=== PATIENT | female | born 1935 ===

== ENCOUNTER 2017-06-08 04:30 | Emergency (ER) | payer MEDICARE, MEDICAID ==
[2017-06-08] MEDS ORDERED: Morphine INJ* 2 MG/ML 1 ML CARPUJECT IV ONE ×2 (04:57→05:45)
[2017-06-08] MEDS ORDERED: LORazepam INJ* 2 MG/ML 1 ML VIAL IV PUSH ONE (04:57)
[2017-06-08] MEDS ORDERED: Ondansetron INJ* 2 MG/ML VIAL IV ONE (04:58)
[2017-06-08 05:23] LABS: ABS Basophils 0.1 10^3/ul (0-0.2); ABS Eosinophils 0 10^3/ul (0-0.6); ABS Lymphocytes 1.7 10^3/ul (1.0-4.8); ABS Monocytes 0.9 10^3/ul (0-0.8); ABS Neutrophils 10.2 10^3/ul (1.5-7.7); ABS Nucleated RBC 0 10^3/ul; Eosinophil % 0.4 % (0-6); Hematocrit 44 % (35-47); Hemoglobin 14.5 g/dl (12.0-16.0); Mean Corpuscular HGB Conc 33 g/dl (31-36); Mean Corpuscular Hemoglobin 30 pg (27-31); Mean Corpuscular Volume 91 fL (80-97); Mean Platelet Volume 9 um3 (7.4-10.4); Nucleated Red Blood Cells % 0; Platelet Count 222 10^3/ul (150-450); Red Blood Count 4.84 10^6/ul (4.0-5.4); Red Cell Distribution Width 14 % (10.5-15); White Blood Count 12.9 10^3/ul (3.5-10.8)
[2017-06-08 05:39] LABS: INR 1.89 (0.77-1.02)
[2017-06-08 05:45] LABS: EGFR Non-African American 84.9 (>60)
--- NOTE | 2017-06-08 06:25 | ED ---
Annamarie Agustin Julia, scribed for Sana Marc MD on 06/08/17 at 0603 . 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 The patient rates the pain 10/10 in severity. Patient denies vomiting, and numbness and tingling in extremities. Daughter reports blood pressure of 179/76. Daughter reports no chronic neck problems. Patient took Tylenol without relief. 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 Onset/Duration: Started hours ago Currently Pain Is: Current Pain Scale(0-10)= - 10 Timing: Constant Location of Headache: Occipital Radiates to: neck Associated Signs And Symptoms: Neck Pain - Allergies/Home Medications Allergies/Adverse Reactions: Allergies Allergy/AdvReac Type Severity Reaction Status Date / Time No Known Allergies Allergy Verified 01/08/14 17:09 PMH/Surg Hx/FS Hx/Imm Hx Endocrine/Hematology History: Reports: Hx Anticoagulant Therapy - heparion gtt, Hx Thyroid Disease Denies: Hx Diabetes Cardiovascular History: Reports: Hx Deep Vein Thrombosis, Hx Hypercholesterolemia, Hx Hypertension Denies: Hx Congestive Heart Failure Respiratory History: Reports: Hx Pulmonary Embolism - current History: Denies: Hx Renal Disease Musculoskeletal History: Reports: Hx Arthritis Psychiatric History: Reports: Hx Depression Infectious Disease History: No Infectious Disease History: Denies: Traveled Outside the [place] in Last 30 Days - Family History Known Family History: Negative: Cardiac Disease - Social History Alcohol Use: None Substance Use Type: Reports: None Hx Tobacco Use: Yes Smoking Status (MU): Former Smoker Length of Time of Smoking/Using Tobacco: 10 years Review of Systems Negative: Vomiting Positive: Myalgia - neck pain Positive: Headache. Negative: Numbness All Other Systems Reviewed And Are Negative: Yes Physical Exam - Summary Physical Exam Summary: VITAL SIGNS: Reviewed. GENERAL: Patient is a well-developed and nourished female who is lying comfortable in the stretcher. Patient is not in any acute respiratory distress. HEAD AND FACE: No signs of trauma. No ecchymosis, hematomas or skull depressions. No sinus tenderness. EYES: PERRLA, EOMI x 2, No injected conjunctiva, no nystagmus. EARS: Hearing grossly intact. Ear canals and tympanic membranes are within normal limits. MOUTH: Oropharynx within normal limits. NECK: Supple, trachea is midline, no adenopathy, no JVD, no carotid bruit, c- spine tenderness, pain with flexion and extension of neck, kyphosis scoliosis CHEST: Symmetric, no tenderness at palpation LUNGS: Clear to auscultation bilaterally. No wheezing or crackles. CVS: Regular rate and rhythm, S1 and S2 present, no murmurs or gallops appreciated. ABDOMEN: Soft, non-tender. No signs of distention. No rebound no guarding, and no masses palpated. Bowel sounds are normal. EXTREMITIES: FROM in all major joints, no edema, no cyanosis or clubbing. NEURO: Alert and oriented x 3. No acute neurological deficits. Speech is normal and follows commands. SKIN: Dry and warm Triage Information Reviewed: Yes Vital Signs On Initial Exam: Initial Vitals Temp Pulse Resp BP Pulse Ox 99.2 F 99 24 160/75 94 06/08/17 04:35 06/08/17 04:35 06/08/17 04:35 06/08/17 04:35 06/08/17 04:35 Vital Signs Reviewed: Yes Diagnostics - Vital Signs Vital Signs Temp Pulse Resp BP Pulse Ox 06/08/17 04:35 99.2 F 99 24 160/75 94 - Laboratory Lab Results: Lab Results 06/08/17 06/08/17 06/08/17 Range/Units 05:01 05:01 05:01 WBC 12.9 H (3.5-10.8) 10^3/ul RBC 4.84 (4.0-5.4) 10^6/ul Hgb 14.5 (12.0-16.0) g/dl Hct 44 (35-47) % MCV 91 (80-97) fL MCH 30 (27-31) pg MCHC 33 (31-36) g/dl RDW 14 (10.5-15) % Plt Count 222 (150-450) 10^3/ul MPV 9 (7.4-10.4) um3 Neut % (Auto) 79.2 (38-83) % Lymph % (Auto) 13.0 L (25-47) % [place] % (Auto) 7.0 (0-7) % Eos % (Auto) 0.4 (0-6) % Baso % (Auto) 0.4 (0-2) % Absolute Neuts (auto) 10.2 H (1.5-7.7) 10^3/ul Absolute Lymphs (auto) 1.7 (1.0-4.8) 10^3/ul Absolute Monos (auto) 0.9 H (0-0.8) 10^3/ul Absolute Eos (auto) 0 (0-0.6) 10^3/ul Absolute Basos (auto) 0.1 (0-0.2) 10^3/ul Absolute Nucleated RBC 0 10^3/ul Nucleated RBC % 0 INR (Anticoag Therapy) 1.89 H (0.77-1.02) APTT 41.1 H (26.0-36.3) seconds Sodium 133 (133-145) mmol/L Potassium 3.8 (3.5-5.0) mmol/L Chloride 101 (101-111) mmol/L Carbon Dioxide 23 (22-32) mmol/L Anion Gap 9 (2-11) mmol/L BUN 15 (6-24) mg/dL Creatinine 0.67 (0.51-0.95) mg/dL Est GFR ( Amer) 109.2 (>60) Est GFR (Non-Af Amer) 84.9 (>60) BUN/Creatinine Ratio 22.4 H (8-20) Glucose 179 H (70-100) mg/dL Calcium 9.9 (8.6-10.3) mg/dL Magnesium 2.1 (1.9-2.7) mg/dL Total Bilirubin 0.70 (0.2-1.0) mg/dL AST 18 (13-39) U/L ALT 19 (7-52) U/L Alkaline Phosphatase 99 (34-104) U/L C-Reactive Protein 6.40 H (< 5.00) mg/L Total Protein 7.9 (6.4-8.9) g/dL Albumin 4.4 (3.2-5.2) g/dL Globulin 3.5 (2-4) g/dL Albumin/Globulin Ratio 1.3 (1-3) Result Diagrams: 06/08/17 05:01 06/08/17 05:01 Lab Statement: Any lab studies that have been ordered have been reviewed, and results considered in the medical decision making process. - CT C-Spine CT Interpretation Completed By: Radiologist - Degenerative changes without fracture. ED Physician has reviewed this report. Head CT CT Interpretation Completed By: Radiologist - No evidence of acute pathology. ED Physician has reviewed this report. Headache Course/Dx - Course Course Of Treatment: Patient presents with neck pain that radiates into the occipital since last night. A C-Spine CT reveals degenerative changes of the neck. A Head CT reveals no acute pathology. Patient is given Ativan, Morphine, and Zofran. Lab results are unremarkable. - Diagnoses Provider Diagnoses: Cervical spine arthritis Discharge - Discharge Plan Condition: Stable Disposition: HOME Prescriptions: Cyclobenzaprine (NF) [Cyclobenzaprine 5 MG (NF)] 5 mg PO TID PRN #20 tab PRN Reason: Pain oxyCODONE/Acetamin 5/325 MG* [Percocet 5/325 TAB*] 1 tab PO Q6H PRN #14 tab MDD 4 PRN Reason: Pain Patient Education Materials: Arthritis (ED) Referrals: Noel Smith MD [Primary Care Provider] - If Needed Additional Instructions: RETURN TO THE EMERGENCY DEPARTMENT FOR CHANGING OR WORSENING SYMPTOMS. The documentation as recorded by the Annamarie borrego Julia accurately reflects the service I personally performed and the decisions made by Tari longo Abdul, MD.
[2017-06-08 06:40] VITALS: BP 153/79
--- NOTE | 2017-06-08 08:07 | RAD ---
HISTORY: Head pain COMPARISONS: June 14, 2013 TECHNIQUE: Multiple contiguous axial CT scans were obtained of the head without intravenous contrast. FINDINGS: HEMORRHAGE/INFARCT: There is no hemorrhage or acute infarct. MASSES/SHIFT: There is no mass or shift. EXTRA-AXIAL SPACES: There are no extra-axial fluid collections. SULCI AND VENTRICLES: The sulci and ventricles are normal in size and position for the patient's stated age. CEREBRUM: There are no focal parenchymal abnormalities. BRAINSTEM: There are no focal parenchymal abnormalities. CEREBELLUM: There are no focal parenchymal abnormalities. VESSELS: The vessels are grossly normal. PARANASAL SINUSES: The paranasal sinuses are clear. ORBITS: The orbits are unremarkable. BONES AND SOFT TISSUE: No bone or soft tissue abnormalities are noted. OTHER: None IMPRESSION: NO ACUTE INTRACRANIAL PATHOLOGY.
--- NOTE | 2017-06-08 08:09 | RAD ---
HISTORY: Posterior head pain COMPARISONS: June 14, 2013 TECHNIQUE: Multiple contiguous axial CT scans were obtained of the cervical spine without intravenous contrast, with coronal and sagittal multiplanar reformations. FINDINGS: BRAIN: The visualized brain is unremarkable CENTRAL CANAL: Evaluation of the central canal is limited on CT technique; however, there is no obvious canalicular mass or epidural hemorrhage. ALIGNMENT: The alignment is normal, without subluxation or dislocation. VERTEBRAL BODIES: There is diffuse osteopenia. Is multilevel anterolateral marginal osteophyte formation. There is no displaced fracture. JOINTS: There is osteoarthritis of the atlantoaxial articulation. There is uncovertebral and facet hypertrophy. MUSCULATURE: Unremarkable INTERVERTEBRAL DISCS: There is diffuse loss of intervertebral disc height. AXIAL IMAGES: On axial images, there is mild narrowing of the central canal at C5-C6 and C6-C7.. There is moderate bilateral neural foraminal narrowing from C3-C4 inferiorly through C6-C7. SOFT TISSUES: The visualized soft tissues of the neck are unremarkable. The prevertebral fat stripe is preserved. OTHER: None. IMPRESSION: 1. OSTEOPENIA. 2. DEGENERATIVE DISC DISEASE AND OSTEOARTHRITIS, DESCRIBED ABOVE. 3. NO ACUTE OSSEOUS INJURY TO THE CERVICAL SPINE.
== END 2017-06-08 06:39 | disposition home or self-care (01) ==
LOC: ED 04:30
DX: M46.82 Other specified inflammatory spondylopathies, cervical region (principal); M54.2 Cervicalgia; R51 Headache; Z87.891 Personal history of nicotine dependence; Z79.01 Long term (current) use of anticoagulants; Z86.711 Personal history of pulmonary embolism
CPT/HCPCS: 36415; 70450; 72125; 80053; 83735; 85025; 85610; 85730; 86140; 96374; 96375; 99283; J2060; J2270; J2405